=== PATIENT | male | born 1980 | race Caucasian/White ===

== ENCOUNTER 2023-01-09 16:52 | Emergency (ER) | payer SELFPAY ==
[2023-01-09] MEDS ORDERED: Cefdinir 300 MG Cap PO ONE (17:06)
[2023-01-09] MEDS ORDERED: Ondansetron 4 MG Tab.DIS PO ONE (17:06)
[2023-01-09] MEDS ORDERED: Acetaminophen/HYDROcodone 325-5 MG Tab PO ONE (17:06)
== END 2023-01-09 17:32 | disposition home or self-care (01) ==
LOC: MW.ED 16:52
DX: S90.821A Blister (nonthermal), right foot, initial encounter (principal); L03.115 Cellulitis of right lower limb; X58.XXXA Exposure to other specified factors, initial encounter
CPT/HCPCS: 99283; A9270

== ENCOUNTER 2023-01-10 19:38 | Inpatient (IN) | payer SELFPAY ==
[2023-01-10] MEDS ORDERED: Sodium Chloride 0.9% 1,000 ML IV ONE (20:14)
[2023-01-10] MEDS ORDERED: Ondansetron 4 MG/2 ML SDV IVPUSH ONE (20:15)
[2023-01-10] MEDS ORDERED: Sodium Chloride 0.9% 2.5 ML Syringe FLUSH PRN ×2 (20:15→21:39)
[2023-01-10] MEDS ORDERED: Ketorolac 30 MG/ML SDV IVPUSH ONE (20:15)
[2023-01-10] MEDS ORDERED: Sodium Chloride 0.9% 10 ML Syringe FLUSH PRN ×2 (20:15→21:39)
[2023-01-10] MEDS ORDERED: Acetaminophen/HYDROcodone 325-5 MG Tab PO ONE (20:15)
[2023-01-10 20:38] LABS: BASOPHILS ABSOLUTE AUTO 0.06 K/uL (0.00-0.20); BASOPHILS PERCENT AUTO 0.6 % (0.0-1.0); EOSINOPHILS ABSOLUTE AUTO 0.22 K/uL (0.00-0.45); HEMATOCRIT 37.6 % (42.0-52.0); IMMATURE GRAN ABSOLUTE AUTO 0.03 K/uL (0.00-0.05); IMMATURE GRAN PERCENT AUTO 0.3 % (0.0-0.4); LYMPHOCYTES ABSOLUTE AUTO 3.16 K/uL (1.00-4.80); LYMPHOCYTES PERCENT AUTO 29.2 % (24.0-44.0); MEAN CORPUSCULAR HEMOGLOBIN 20.9 pg (28.0-32.0); MEAN CORPUSCULAR HGB CONC 31.9 g/dL (32.0-36.0); MEAN PLATELET VOLUME 8.8 fL (9.4-12.4); MONOCYTES ABSOLUTE AUTO 0.76 K/uL (0.00-0.80); NEUTROPHILS ABSOLUTE AUTO 6.6 K/uL (1.8-7.7); NEUTROPHILS PERCENT AUTO 60.9 % (41.0-71.0); PLATELET COUNT,PLT 361 K/uL (150-400); RED BLOOD CELL COUNT 5.75 M/uL (4.52-5.90); WHITE BLOOD CELL COUNT,WBC 10.82 K/uL (3.9-11.3)
[2023-01-10 20:53] LABS: MEAN CORPUSCULAR VOLUME 65.4 fL (83.0-99.0)
[2023-01-10 21:00] LABS: ALBUMIN 3.5 g/dL (3.4-5.0); BILIRUBIN TOTAL 0.2 mg/dL (0.2-1.0); CALCIUM 8.9 mg/dL (8.5-10.1); CARBON DIOXIDE,CO2 30.6 mmol/L (21.0-32.0); CREATININE 1.1 mg/dL (0.8-1.3); EST CRCL DRUG DOSING (CG) 83.77 mL/min; POTASSIUM,K 4.3 mmol/L (3.5-5.1)
[2023-01-10] MEDS ORDERED: Piperacillin/Tazobactam 3.375 GM in Sodium Chloride 0.9% 100 ML IV ONE (21:33)
[2023-01-10] MEDS ORDERED: Sodium Chloride 0.9% 20 ML SDV IV PRN (21:39)
[2023-01-10] MEDS ORDERED: Polyethylene Glycol 3350 Powder 17 GM Packet PO PRN (21:39)
[2023-01-10] MEDS ORDERED: Albuterol/Ipratropium 3.0-0.5 MG/3 ML Neb Soln NEB PRN (21:39)
[2023-01-10] MEDS ORDERED: Acetaminophen 325 MG Tab PO PRN (21:39)
[2023-01-10] MEDS ORDERED: Ondansetron 4 MG/2 ML SDV IVPUSH PRN (21:39)
[2023-01-10] MEDS ORDERED: Ketorolac 30 MG/ML SDV IM SCH (21:45)
[2023-01-10] MEDS ORDERED: VANCOmycin 1.5 GM/300 ML 1.5 GM in Premix Bag 1 BAG IV ONE (22:00)
[2023-01-10] MEDS ORDERED: Piperacillin/Tazobactam 3.375 GM in Sodium Chloride 0.9% 100 ML IV SCH (22:00)
[2023-01-10] MEDS: Sodium Chloride 0.9% 1,000 ML IV SCH (22:47)
[2023-01-11] MEDS ORDERED: Ketorolac 30 MG/ML SDV IM SCH (04:00)
[2023-01-11] MEDS: Piperacillin/Tazobactam 3.375 GM in Sodium Chloride 0.9% 100 ML IV SCH ×3 (05:11→21:14)
[2023-01-11 06:49] LABS: BASOPHILS ABSOLUTE AUTO 0.05 K/uL (0.00-0.20); BASOPHILS PERCENT AUTO 0.7 % (0.0-1.0); EOSINOPHILS ABSOLUTE AUTO 0.19 K/uL (0.00-0.45); EOSINOPHILS PERCENT AUTO 2.6 % (0.0-6.0); HEMATOCRIT 36.5 % (42.0-52.0); HEMOGLOBIN 11.4 g/dL (14.0-18.0); IMMATURE GRAN ABSOLUTE AUTO 0.02 K/uL (0.00-0.05); IMMATURE GRAN PERCENT AUTO 0.3 % (0.0-0.4); LYMPHOCYTES ABSOLUTE AUTO 2.32 K/uL (1.00-4.80); LYMPHOCYTES PERCENT AUTO 32.4 % (24.0-44.0); MEAN CORPUSCULAR HEMOGLOBIN 20.4 pg (28.0-32.0); MEAN CORPUSCULAR HGB CONC 31.2 g/dL (32.0-36.0); MEAN CORPUSCULAR VOLUME 65.2 fL (83.0-99.0); MONOCYTES ABSOLUTE AUTO 0.67 K/uL (0.00-0.80); MONOCYTES PERCENT AUTO 9.3 % (0.0-8.0); NEUTROPHILS ABSOLUTE AUTO 3.9 K/uL (1.8-7.7); NEUTROPHILS PERCENT AUTO 54.7 % (41.0-71.0); PLATELET COUNT,PLT 346 K/uL (150-400); WHITE BLOOD CELL COUNT,WBC 7.17 K/uL (3.9-11.3)
[2023-01-11 07:07] LABS: C-REACTIVE PROTEIN 0.6 mg/dL (<0.3); CALCIUM 7.7 mg/dL (8.5-10.1); CARBON DIOXIDE,CO2 25.4 mmol/L (21.0-32.0); EST CRCL DRUG DOSING (CG) 92.15 mL/min; MAGNESIUM 2.1 mg/dL (1.8-2.4); POTASSIUM,K 4.2 mmol/L (3.5-5.1)
[2023-01-11] MEDS ORDERED: Ketorolac 30 MG/ML SDV IVPUSH SCH (07:44)
[2023-01-11] MEDS: Sodium Chloride 0.9% 1,000 ML IV SCH (09:28)
[2023-01-11] MEDS ORDERED: Diphtheria,Pertussis(Acell),Tetanus Vaccine 0.5 ML Syringe IM ONE (10:18)
[2023-01-11] MEDS ORDERED: Iopamidol 755 MG/ML 500 ML Multipack Bottle IVPUSH STA (10:59)
[2023-01-11] MEDS: Morphine 2 MG/ML SYRINGE IVPUSH ONE ×2 (13:59→17:27)
[2023-01-11] MEDS: Ketorolac 30 MG/ML SDV IVPUSH SCH ×2 (14:00→21:14)
[2023-01-11] MEDS ORDERED: Lidocaine 1% 5 ML VIAL INJECT ONE (17:26)
[2023-01-11] MEDS ORDERED: Lidocaine 1% 20 ML MDV INJECT ONE (17:30)
[2023-01-11] MEDS: oxyCODONE 5 MG Tab PO PRN (18:45)
[2023-01-12] MEDS: oxyCODONE 5 MG Tab PO PRN ×2 (00:18→10:23)
[2023-01-12] MEDS: Sodium Chloride 0.9% 1,000 ML IV SCH (00:19)
[2023-01-12] MEDS: Piperacillin/Tazobactam 3.375 GM in Sodium Chloride 0.9% 100 ML IV SCH (06:08)
[2023-01-12 06:09] LABS: BASOPHILS ABSOLUTE AUTO 0.05 K/uL (0.00-0.20); BASOPHILS PERCENT AUTO 0.8 % (0.0-1.0); EOSINOPHILS ABSOLUTE AUTO 0.18 K/uL (0.00-0.45); EOSINOPHILS PERCENT AUTO 2.8 % (0.0-6.0); HEMATOCRIT 35.9 % (42.0-52.0); HEMOGLOBIN 11.3 g/dL (14.0-18.0); IMMATURE GRAN ABSOLUTE AUTO 0.02 K/uL (0.00-0.05); IMMATURE GRAN PERCENT AUTO 0.3 % (0.0-0.4); LYMPHOCYTES ABSOLUTE AUTO 2.68 K/uL (1.00-4.80); LYMPHOCYTES PERCENT AUTO 41.4 % (24.0-44.0); MEAN CORPUSCULAR HEMOGLOBIN 20.7 pg (28.0-32.0); MEAN CORPUSCULAR HGB CONC 31.5 g/dL (32.0-36.0); MEAN CORPUSCULAR VOLUME 65.9 fL (83.0-99.0); MEAN PLATELET VOLUME 8.7 fL (9.4-12.4); MONOCYTES ABSOLUTE AUTO 0.54 K/uL (0.00-0.80); MONOCYTES PERCENT AUTO 8.3 % (0.0-8.0); NEUTROPHILS PERCENT AUTO 46.4 % (41.0-71.0); PLATELET COUNT,PLT 325 K/uL (150-400); RED BLOOD CELL COUNT 5.45 M/uL (4.52-5.90); WHITE BLOOD CELL COUNT,WBC 6.47 K/uL (3.9-11.3)
[2023-01-12 06:30] LABS: CALCIUM 8.2 mg/dL (8.5-10.1); CARBON DIOXIDE,CO2 26.2 mmol/L (21.0-32.0); CREATININE 0.9 mg/dL (0.8-1.3); EST CRCL DRUG DOSING (CG) 102.39 mL/min
[2023-01-12] MEDS ORDERED: Sulfamethoxazole/Trimethoprim 800-160 MG Tab PO ONE (10:43)
== END 2023-01-12 12:00 | disposition home or self-care (01) | DRG 603 ==
LOC: MW.ED 19:38 → MW.MS 21:34 → OBSVTOIN 21:34 → MW.MS 01-11 12:55
PROVIDERS: ADMIT Family Medicine; ATTEND Family Medicine
DX: L03.115 Cellulitis of right lower limb (principal); L02.611 Cutaneous abscess of right foot; Z59.00 Homelessness unspecified; F17.210 Nicotine dependence, cigarettes, uncomplicated; F15.10 Other stimulant abuse, uncomplicated; Z71.6 Tobacco abuse counseling; Z79.899 Other long term (current) drug therapy
CPT/HCPCS: 36415; 73630-26-RT; 73630-RT; 73701-26-RT; 73701-RT; 80048; 80053; 80202; 83735; 85025; 86140; 87070; 87205; 90471; 90715; 96361; 96365; 96367; 96372; 96375; 96376; 97161-GP; 99284; 99285-25; A9270-GY; G0378; J1885; J2270; J2405; J2543; J3370; J3490; J7030; J7050; Q9967